=== PATIENT | female | born 1960 ===

== ENCOUNTER 2020-06-21 07:30 | Observation (INO) ==
[~2020-06-21 07:30] MED LIST: Buffered Lidocaine 1% SYRIN 1 ml INTRADERM ONE; Dexamethasone IV 4 MG/ML VIAL 1 ml VIAL IV SLOW PU ONE; Lactated Ringers 1000 ml BAG 1,000 ML IV SCH
[2020-06-21] MEDS ORDERED: Dexamethasone IV 4 MG/ML VIAL 1 ml VIAL ONE ×3 (12:58→15:32)
[2020-06-21] MEDS ORDERED: ceFAZolin 2 GM PREMIX 2 GM/50 ML BAG ONE (12:59)
[2020-06-21] MEDS ORDERED: Lidocaine 2% PF 5 ML VIAL ONE ×2 (13:18→14:02)
[2020-06-21] MEDS ORDERED: Propofol 10 MG/ML 20 ML BTL ONE ×3 (13:18→16:18)
[2020-06-21] MEDS ORDERED: ROPIVACAINE 5 MG/ML 30 ML BTL (0.5%) ONE ×2 (14:01→14:02)
[2020-06-21] MEDS ORDERED: fentaNYL 100 mcg/2 ml 50 MCG/ML VIAL ONE (14:03)
[2020-06-21] MEDS ORDERED: Midazolam 2 mg/2 ml VIAL 1 mg/ml 2 ml VIAL (2 mg) ONE (14:03)
[2020-06-21] MEDS ORDERED: Ondansetron 4 mg VIAL 2 MG/ML 2 ml VIAL ONE (15:31)
[2020-06-21] MEDS ORDERED: HYDROmorphone 1 MG/1 ML SYRINGE IV PRN (15:37)
[2020-06-21] MEDS ORDERED: Naloxone 0.4 mg VIAL 0.4 mg/ml 1 ml VIAL IV PRN (15:37)
[2020-06-21] MEDS ORDERED: fentaNYL 100 mcg/2 ml 50 MCG/ML VIAL IV PRN (15:37)
[2020-06-21] MEDS ORDERED: Ondansetron 4 mg VIAL 2 MG/ML 2 ml VIAL IV PRN ×2 (15:37→16:59)
[2020-06-21] MEDS ORDERED: Ondansetron ODT 4 mg TAB 4 MG TAB PO PRN (16:59)
[2020-06-21] MEDS ORDERED: diPHENhydraMINE IV 50 MG/ML 1 ml VIAL (BENADRYL) IV PRN (16:59)
[2020-06-21] MEDS ORDERED: oxyCODONE/Acetamin 5/325 mg TAB PO PRN (16:59)
[2020-06-21] MEDS ORDERED: Morphine 2 MG/ML SYRINGE IV PRN (16:59)
[2020-06-21] MEDS ORDERED: diPHENhydraMINE 25 mg TAB PO PRN (16:59)
[2020-06-21] MEDS ORDERED: Magnesium Hydroxide LIQ 30 ML UDC PO PRN (16:59)
[2020-06-21] MEDS ORDERED: Lactulose 30 ml UDC PO PRN (16:59)
[2020-06-21] MEDS ORDERED: Lactated Ringers 1000 ml BAG 1,000 ML IV SCH (17:00)
[2020-06-21] MEDS: oxyCODONE/Acetamin 5/325 mg TAB PO PRN (20:36)
[2020-06-21] MEDS: Magnesium Hydroxide LIQ 30 ML UDC PO SCH (20:37)
[2020-06-21] MEDS: ceFAZolin 1 GM ADVAN 1 GM in NS 0.9% 50 ML 50 ML IVPB SCH (22:54)
[2020-06-22] MEDS: oxyCODONE/Acetamin 5/325 mg TAB PO PRN ×4 (00:59→14:50)
[2020-06-22] MEDS: ceFAZolin 1 GM ADVAN 1 GM in NS 0.9% 50 ML 50 ML IVPB SCH ×2 (06:15→14:13)
[2020-06-22 07:13] LABS: Hematocrit 32 % (35-47); Hemoglobin 11.1 g/dL (12.0-16.0); Mean Platelet Volume 10.4 fL (7.4-10.4); Platelet Count 205 10^3/uL (150-450)
[2020-06-22 07:34] LABS: Calcium 8.8 mg/dL (8.6-10.3); EGFR African American 94.7 (>60); EGFR Non-African American 78.3 (>60); Potassium 4.2 mmol/L (3.5-5.0)
[2020-06-22] MEDS ORDERED: Vitamin THERAPEUTIC TAB PO SCH (09:00)
[2020-06-22] MEDS: Magnesium Hydroxide LIQ 30 ML UDC PO SCH (09:28)
[2020-06-22 11:22] VITALS: BP 111/47
== END 2020-06-22 15:00 | disposition home or self-care (01) ==
LOC: INTOOBSV 12:18 → AA 12:18 → SSU 16:59
PROVIDERS: ADMIT Orthopaedic Surgery Adult Reconstructive Orthopaedic Surgery; ATTEND Orthopaedic Surgery Adult Reconstructive Orthopaedic Surgery